=== PATIENT | female | born 2000 | race Caucasian/White ===

== ENCOUNTER 2021-10-19 14:36 | Observation (INO) | payer BC ==
[2021-10-19] MEDS ORDERED: Sodium Chloride 0.9% 1,000 ML IV ONE ×2 (17:38→19:32)
[2021-10-19] MEDS ORDERED: Ondansetron 4 MG/2 ML SDV IVPUSH ONE (17:38)
[2021-10-19 19:14] LABS: CARBON DIOXIDE,CO2 24.4 mmol/L (21.0-32.0); POTASSIUM,K 3.3 mmol/L (3.5-5.1)
[2021-10-19] MEDS: Lactated Ringers 1,000 ML IV SCH (22:27)
[2021-10-20] MEDS: Ondansetron 4 MG Tab.DIS PO PRN ×3 (03:46→21:01)
[2021-10-20] MEDS: Lactated Ringers 1,000 ML IV SCH ×4 (03:47→20:16)
[2021-10-20 05:30] LABS: CARBON DIOXIDE,CO2 24.4 mmol/L (21.0-32.0); POTASSIUM,K 3.4 mmol/L (3.5-5.1)
[2021-10-20] MEDS ORDERED: Pantoprazole 40 MG Vial IV ONE (11:09)
[2021-10-21] MEDS: Lactated Ringers 1,000 ML IV SCH ×3 (01:25→11:24)
[2021-10-21] MEDS: Ondansetron 4 MG Tab.DIS PO PRN (11:24)
== END 2021-10-21 18:10 | disposition home or self-care (01) ==
LOC: MW.ED 14:36 → MW.MS 19:33
PROVIDERS: ADMIT Obstetrics & Gynecology; ATTEND Obstetrics & Gynecology
DX: O21.0 Mild hyperemesis gravidarum (principal); Z91.011 Allergy to milk products; Z91.012 Allergy to eggs; Z91.018 Allergy to other foods; Z3A.10 10 weeks gestation of pregnancy; Z79.899 Other long term (current) drug therapy; Z20.822 Contact with and (suspected) exposure to COVID-19
CPT/HCPCS: 36415; 80053; 81003; 81025; 83690; 85025; 87635; 96361; 96374; 99285; A9270; C9113; J2405; J7030; J7120; U0002

== ENCOUNTER 2022-05-13 05:19 | Inpatient (IN) | payer BC ==
[2022-05-13] MEDS ORDERED: Sodium Chloride 0.9% 20 ML SDV IV PRN (11:32)
[2022-05-13] MEDS ORDERED: Carboprost Tromethamine 250 MCG/1 ML Amp IM PRN (11:32)
[2022-05-13] MEDS ORDERED: Misoprostol 200 MCG Tab PO PRN (11:32)
[2022-05-13] MEDS ORDERED: Butorphanol 1 MG/ML SDV IVPUSH PRN (11:32)
[2022-05-13] MEDS ORDERED: Methylergonovine 0.2 MG/1 ML Amp IM PRN (11:32)
[2022-05-13] MEDS ORDERED: Tranexamic Acid 1,000 MG in Sodium Chloride 0.9% 100 ML IV PRN (11:32)
[2022-05-13] MEDS ORDERED: Lidocaine 1% 50 ML MDV INJECT PRN (11:32)
[2022-05-13] MEDS ORDERED: Sodium Chloride 0.9% 10 ML Syringe FLUSH PRN (11:32)
[2022-05-13] MEDS ORDERED: Water For Irrigation,Sterile 1,000 ML Container IRR PRN (11:32)
[2022-05-13] MEDS ORDERED: Sodium Chloride 0.9% 2.5 ML Syringe FLUSH PRN (11:32)
[2022-05-13] MEDS ORDERED: Oxytocin/0.9 % Sodium Chloride 30 UNIT/500 ML BAG IV SCH (11:45)
[2022-05-13] MEDS ORDERED: Lactated Ringers 1,000 ML IV SCH (11:45)
[2022-05-13] MEDS ORDERED: Ondansetron 4 MG/2 ML SDV IVPUSH PRN (11:49)
[2022-05-13] MEDS ORDERED: Bisacodyl 10 MG Supp RECTAL PRN (13:51)
[2022-05-13] MEDS ORDERED: Acetaminophen 500 MG Tab PO PRN ×2 (13:51)
[2022-05-13] MEDS ORDERED: Benzocaine/Menthol 20%-0.5% Spray 78 GM Cannister TOP PRN (13:51)
[2022-05-13] MEDS ORDERED: Docusate Sodium 100 MG Cap PO PRN (13:51)
[2022-05-13] MEDS ORDERED: Ibuprofen 400 MG Tab PO PRN (13:51)
[2022-05-13] MEDS ORDERED: Witch Hazel Medicated Pads 40/Jar TOP PRN (13:51)
[2022-05-13] MEDS ORDERED: Lanolin 100% Cream 7 GM Tube TOP PRN (13:51)
[2022-05-13] MEDS ORDERED: Ibuprofen 800 MG Tab PO PRN (13:51)
== END 2022-05-14 15:54 | disposition home or self-care (01) | DRG 560 ==
LOC: MW.OBCHECK 05:19 → MW.OB 05:21 → MW.OBCHECK 11:31 → MW.OB 11:32 → OBSVTOIN 13:14 → MW.OB 16:55
PROVIDERS: ADMIT Obstetrics & Gynecology Obstetrics; ATTEND Obstetrics & Gynecology Obstetrics
PROC: 10E0XZZ Delivery of Products of Conception, External Approach (ICD-10-PCS; principal; 2022-05-13)
DX: O48.0 Post-term pregnancy (principal); O21.0 Mild hyperemesis gravidarum; Z37.0 Single live birth; Z3A.40 40 weeks gestation of pregnancy; Z88.8 Allergy status to other drugs, medicaments and biological substances
CPT/HCPCS: 36415; 59025; 59409; 85014; 85018; 85027; 86592; 86850; 86900; 86901; A9270-GY; J2001; J2590; J7120